=== PATIENT | female | born 1965 | race Caucasian/White ===

== ENCOUNTER 2023-06-12 14:54 | Outpatient (AMB) | payer BC, SELFPAY ==
[2023-06-12 15:05] VITALS: BP 96/80; PULSE 80; O2SAT 98; BMI 24.4
--- NOTE | 2023-06-12 15:05 | A.OFFVIS_ITS ---
Intake Vital Signs 06/12/23 15:05 Height 5 ft 4 in Weight 142 lb BMI 24.4 BP 96/80 Blood Pressure Location Rt brachial Position Sitting Pulse 80 Pulse Source Pulse Oximeter Pulse Oximetry (%) 98 Intake Visit Reasons: ENP-Paresthesia/Small flair neuropathy - LVM Intake Note: Patient presents for flair neuropathy Allergies No Known Allergies Allergy (Verified 06/12/23 15:11) Medication List - Last Reconciled 06/12/23 by ARIS Mustafa cholecalciferol (vitamin D3) 25 mcg PO DAILY levothyroxine 75 mcg PO DAILY magnesium citrate 100 mg PO DAILY mecobalamin (vitamin B12) 1,000 mcg PO DAILY multivitamin with iron 1 tab PO DAILY omega 3-mga-wlz-fish oil 100-160-1,000 mg (Fish Oil) caps PO HPI HPI Comments History of Present Illness Details Left-handed 58-yr-old female presents for neurological evaluation of neuropathy. Patient states she was diagnosed with small fiber neuropathy in 2020, however she is concerned that she has sciatica no in her lower back. Patient was previously seen by Dr. Kennedy before he retired. She is scheduled for a consult with Dr. Monica Vargas at [facility] [place]. Pt reports she in Apr 2020, she noticed an area of loss of sensation in her right inner lower leg. This lasted a few days, which prompted her to start seeking care. Then the numbness progressed over the next few months- to her entire body (including her face). The numbness- feels like she can feel s uperficial touch but deeper sensation is decreased. She then starting having episodes of little muscles and spasms. She then found that she become more prone to feet, legs, arms falling asleep more easily. At that time she underwent: Skin nerve biopsy in the right leg results were consistent with small fiber neuropathy. 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 Pt reports- LP and EMG testing were normal. In May, she had an infection, possibly shingles vs Covid-19- had zinging sensations like a mild rubber band sting- this could occur all over body (except for the face). This had progressed over the year. In May 2021, she also did have a small rash on her right lumbar region a/w mild discomfort. The right lumbar rash/discomfort- resolved pretty quickly Had a lot of stress at that time. She has now been noticing lower lumbar numbness a/w increased BLE numbness not always a/w pain but sometimes discomfort, sensation of muscle buzzing in her legs and sometimes in the abdomen. A year ago, she would have episodes of intermittent right 1st finger tremor. This past week- she had visible muscle fasciculation which she could see through her jeans. In Spring 2022- she was having increased zinging pain in the arms and trunk, some in the lags. She thought maybe it was shingles. She felt this was due to stress. She does not usually have low back pain- only if she sits in an off position. She can have bilateral neck soreness which can move up into the back of the head- and can cause a headache. This started after an accident 5 yrs ago- had lifted something heavier and felt some back strain. It took some time for this to improve- did PT and the PT exercises have helped. She can have T10 region increased numbness a/w increasing torso spasms when pressure is applied to the region- has to wear bra extenders. She can be dizzy at times- can feel lightheaded. She tries to increase her fluid and salt her foods. Prone to sleeping lightly. She has urinary stress incontinence since delivering her 2 children vaginally- this has been worse since 2019, can have leakage r/t being in a warm shower. She denies swelling or skin color changes. She denies usual restlessness. Denies usual cramps. Her mother has automimmune disorders and skin sensitivity- but she does not have numbness. Her maternal grandmother had been dx'd w/ fibromyalgia. [facility] Surgical History (Updated 06/12/23 @ 15:16 by KANU Ulloa) Hx of appendectomy Family History (Updated 06/12/23 @ 15:17 by KANU Ulloa) Mother Breast cancer in female Thyroid disease Social History (Updated 06/12/23 @ 15:17 by KANU Ulloa) Alcohol intake: never Patient Tobacco Use Status: Never used Tobacco Review of Systems Const All systems reviewed & are unremarkable except as noted in HPI and below Physical Exam Vital Signs: Last Vital Signs Pulse 80 06/12/23 15:05 BP 96/80 06/12/23 15:05 Pulse Ox 98 06/12/23 15:05 BMI result Body Mass Index 24.4 Const General: cooperative and no acute distress Orientation/consciousness: patient oriented x3 HEENT Head: Yes normocephalic Resp Effort & Inspection: normal respiratory effort and able to speak in complete sentences Neuro Other: Mild lingual tremor/movement. General: patient oriented x3, CN's II-XI intact bilaterally and deep tendon reflexes 2+ bilaterally Gait exam (Neuro): Normal gait present Motor exam (neuro): 5/5 motor strength present throughout Psych Appearance: grossly normal Mental Status: mental status grossly normal Speech and movement: Normal speech and movement present Affect: normal affect Attitude: cooperative Thought process: Normal thought process present Thought content: Normal thought content present Insight: Good insight present (Psych) Assessment & Plan Assessment & Plan (1) Small fiber neuropathy: Code(s): G62.9 - Polyneuropathy, unspecified (2) Tingling: Code(s): R20.2 - Paresthesia of skin (3) Numbness: Code(s): R20.0 - Anesthesia of skin (4) Muscle spasm: Code(s): M62.838 - Other muscle spasm (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 Thoracic spine MRI with and without contrast L-spine MRI without contrast to assess mid-thoracic numbness, lumbar-sacral region numbness, paresthesias, muscle spasms, back pain, urinary symptoms. Follow-up with [facility] as scheduled. Case discussed with Dr. Alyse Saucedo. Orders: Orders Homocysteine 06/12/23 M62.838 - Other muscle spasm, R20.0 - Anesthesia of skin, R20.2 - Paresthesia of skin, G62.9 - Polyneuropathy, unspecified Methylmalonic Acid 06/12/23 M62.838 - Other muscle spasm, R20.0 - Anesthesia of skin, R20.2 - Paresthesia of skin, G62.9 - Polyneuropathy, unspecified Complete Blood Count Auto Diff 06/12/23 M62.838 - Other muscle spasm, R20.0 - Anesthesia of skin, R20.2 - Paresthesia of skin, G62.9 - Polyneuropathy, unspecified Creatine Kinase Total 06/12/23 M62.838 - Other muscle spasm, R20.0 - Anesthesia of skin, R20.2 - Paresthesia of skin, G62.9 - Polyneuropathy, unspecified Erythrocyte Sedimentation Rate 06/12/23 M62.838 - Other muscle spasm, R20.0 - Anesthesia of skin, R20.2 - Paresthesia of skin, G62.9 - Polyneuropathy, unspecified IRON PROFILE 06/12/23.838 - Other muscle spasm, R20.0 - Anesthesia of skin, R20.2 - Paresthesia of skin, G62.9 - Polyneuropathy, unspecified Folate 06/12/23 M6.838 - Other muscle spasm, R20.0 - Anesthesia of skin, R20.2 - Paresthesia of skin, G62.9 - Polyneuropathy, unspecified MR thoracic spine wo/w con 06/12/23 D49.2 - Neoplasm of unspecified behavior of bone, soft tissue, and skin, M54.50 - Low back pain, unspecified, M54.6 - Pain in thoracic spine, G62.9 - Polyneuropathy, unspecified, R20.2 - Paresthesia of skin, R20.0 - Anesthesia of skin, M62.838 - Other muscle spasm Ferritin 06/12/23 M62.838 - Other muscle spasm, R20.0 - Anesthesia of skin, R20.2 - Paresthesia of skin, G62.9 - Polyneuropathy, unspecified Vitamin B12 and Folate 06/12/23 M6.838 - Other muscle spasm, R20.0 - Anesthesia of skin, R20.2 - Paresthesia of skin, G62.9 - Polyneuropathy, unspecified Comprehensive Met. Panel 06/12/23 M6.838 - Other muscle spasm, R20.0 - Anesthesia of skin, R20.2 - Paresthesia of skin, G62.9 - Polyneuropathy, unspecified CRP High Sensitivity 06/12/23 M62.838 - Other muscle spasm, R20.0 - Anesthesia of skin, R20.2 - Paresthesia of skin, G62.9 - Polyneuropathy, unspecified Hemoglobin A1c 06/12/23 G62.9 - Polyneuropathy, unspecified, R20.2 - Paresthesia of skin, R20.0 - Anesthesia of skin, M62.838 - Other muscle spasm MR lumbar spine wo con 06/12/23 D49.2 - Neoplasm of unspecified behavior of bone, soft tissue, and skin, M54.50 - Low back pain, unspecified, M54.6 - Pain in thoracic spine, G62.9 - Polyneuropathy, unspecified, R20.2 - Paresthesia of skin, R20.0 - Anesthesia of skin, M62.838 - Other muscle spasm Coding Level of Care Code New Pt Level 4 (76088) Diagnoses Small fiber neuropathy G62.9 Tingling R20.2 Numbness R20.0 Muscle spasm M62.838 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
== END 2023-06-12 16:55 | disposition home or self-care (01) ==
PROVIDERS: PCP Family Medicine; Visit Provider Nurse Practitioner Family
DX: G62.9 Polyneuropathy, unspecified (principal); R20.2 Paresthesia of skin; R20.0 Anesthesia of skin; M62.838 Other muscle spasm; D49.2 Neoplasm of unspecified behavior of bone, soft tissue, and skin; M54.50 Low back pain, unspecified; M54.6 Pain in thoracic spine
CPT/HCPCS: 99204

== ENCOUNTER → 2023-06-12 14:54 | Outpatient (BNVA) | payer BC, SELFPAY | PROVIDERS: PCP Family Medicine; Visit Provider Nurse Practitioner Family ==

== ENCOUNTER 2024-01-22 09:39 | Outpatient (AMB) | payer BC, SELFPAY ==
--- NOTE | 2024-01-22 09:39 | A.OFFVIS_ITS ---
Intake Visit Reasons: Follow up Intake Note: Patient following up for MRI results. Allergies No Known Allergies Allergy (Verified 01/22/24 09:40) HPI Comments Details: Left-handed 58-yr-old female presents for f/u of neuropathy. States she had labs done in July- states everything was normal, except the thyroid-. She plans to see a new mri specialist through [facility]. Unfortunately we do not have copy of lab reports. T-spine and L-spine MRI showed minimal thoracic spine degenerative changes. Stable mild lumbar degenerative changes w/ mildto modertae left and mild right foraminal stenosis at L5-S1. Pt reports that she had consult w/ Dr Vargas, who advised her to f/u on managing her thyroid d/o, but also that her condition could be a [id number] process. Had f/u testing showed presecnce but improvement in neuropathy. She feels a quick buzzing/vibrating sensation in her body mostly in the BLE, may feel in the lower trunk. This started about 8-9 months ago. She wonders if this is an early sign of something or is just her nerves being over-activated by the day. This is worse when has has done more physical activity during the day. Usually in bed, evening, but can notice during the day. Certain positions help/worsen. This can prevent her from falling asleep. Denies leg cramps, creepy crawling sensation, urge to move. She does feel BLE leg feel like jelly and her buttocks can fall asleep when sitting. Also feels focal tightening/constriction/pressure deep within- in the arm it feels like a grab. Comes in different spots mostly in her arms and legs. Each episode lasts 30 seconds, then comes and goes in the same location, and then moves to a different location. Does not occur every day. Initial HPI form 06/12/2023: Patient states she was diagnosed with small fiber neuropathy in 2020, however she is concerned that she has sciatica no in her lower back. Patient was previously seen by Dr. Kennedy before he retired. She is scheduled for a consult with Dr. Monica Vargas at [facility] [place]. Pt reports she in Apr 2020, she noticed an area of loss of sensation in her right inner lower leg. This lasted a few days, which prompted her to start seeking care. Then the numbness progressed over the next few months- to her entire body (including her face). The numbness- feels like she can feel superficial touch but deeper sensation is decreased. She then starting having episodes of little muscles and spasms. She then found that she become more prone to feet, legs, arms falling asleep more easily. At that time she underwent: Skin nerve biopsy in the right leg results were consistent with small fiber neuropathy. 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 Pt reports- LP and EMG testing were normal. In May, she had an infection, possibly shingles vs Covid-19- had zinging sensations like a mild rubber band sting- this could occur all over body (except for the face). This had progressed over the year. In May 2021, she also did have a small rash on her right lumbar region a/w mild discomfort. The right lumbar rash/discomfort- resolved pretty quickly Had a lot of stress at that time. She has now been noticing lower lumbar numbness a/w increased BLE numbness not always a/w pain but sometimes discomfort, sensation of muscle buzzing in her legs and sometimes in the abdomen. A year ago, she would have episodes of intermittent right 1st finger tremor. This past week- she had visible muscle fasciculation which she could see through her jeans. In Spring 2022- she was having increased zinging pain in the arms and trunk, some in the lags. She thought maybe it was shingles. She felt this was due to stress. She does not usually have low back pain- only if she sits in an off position. She can have bilateral neck soreness which can move up into the back of the head- and can cause a headache. This started after an accident 5 yrs ago- had lifted something heavier and felt some back strain. It took some time for this to improve- did PT and the PT exercises have helped. She can have T10 region increased numbness a/w increasing torso spasms when pressure is applied to the region- has to wear bra extenders. She can be dizzy at times- can feel lightheaded. She tries to increase her fluid and salt her foods. Prone to sleeping lightly. She has urinary stress incontinence since delivering her 2 children vaginally- this has been worse since 2019, can have leakage r/t being in a warm shower. She denies swelling or skin color changes. She denies usual restlessness. Denies usual cramps. Her mother has automimmune disorders and skin sensitivity- but she does not have numbness. Her maternal grandmother had been dx'd w/ fibromyalgia. PFSH Surgical History Hx of appendectomy Family History Mother Breast cancer in female Thyroid disease Social History Alcohol intake: never Patient Tobacco Use Status: Never used Tobacco Physical Exam Const General: cooperative and no acute distress Orientation/consciousness: patient oriented x3 Resp Effort & Inspection: normal respiratory effort and able to speak in complete sentences Neuro General: patient oriented x3 Cognition (Neuro): normal cognition Psych Appearance: grossly normal Mental Status: mental status grossly normal Speech and movement: Normal speech and movement present Affect: normal affect Attitude: cooperative Telehealth Telehealth Telehealth Platform: [email or web address] Location of provider rendering services: practice address Location of patient: address on file Patient Identification confirmed using: Name, : Yes Telehealth method: video Patient verbally consented to treatment: Yes Patient verbally consented to billing insurance company: Yes Patient informed of any privacy concerns related to visit: Yes Minutes spent on Phone/Video with Pt.: 25 Assessment & Plan Assessment & Plan (1) Small fiber neuropathy: Code(s): G62.9 - Polyneuropathy, unspecified Category: Medical (2) Tingling: Code(s): R20.2 - Paresthesia of skin Category: Medical (3) Numbness: Code(s): R20.0 - Anesthesia of skin Category: Medical (4) Muscle spasm: Code(s): M62.838 - Other muscle spasm Category: Medical (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 Pt will upload copy of her results and [facility] [place] consult report to her portal. Upon review, consider additional work-up for possible etiologies of neuropathy. Follow-up with [facility] as scheduled. Labs reviewed- CBC, CMP, ESR/CRP, CK, ferritin, iron profile, MMA lavel, homocysteine- WNL. 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
== END 2024-01-22 10:48 | disposition home or self-care (01) ==
LOC: HO.HSMS 09:39
PROVIDERS: PCP Family Medicine; Visit Provider Nurse Practitioner Family
DX: G62.9 Polyneuropathy, unspecified (principal); R20.2 Paresthesia of skin; R20.0 Anesthesia of skin; M62.838 Other muscle spasm; D49.2 Neoplasm of unspecified behavior of bone, soft tissue, and skin; M54.50 Low back pain, unspecified; M54.6 Pain in thoracic spine
CPT/HCPCS: 99214

== ENCOUNTER → 2024-01-22 09:39 | Outpatient (BNVA) | payer BC, SELFPAY | PROVIDERS: PCP Family Medicine; Visit Provider Nurse Practitioner Family ==

== ENCOUNTER 2024-07-30 08:50 | Outpatient (AMB) | payer BC, SELFPAY ==
--- NOTE | 2024-07-30 08:48 | MHC.OFFVIS ---
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 In Mar, she lifted a 40lb paper roll (which is awkward to carry/hold) at work, which caused a painful zing f/b a buzzing uncomfortable sensation x's 2 days and self-resolved. She reports the buzzing sensation is occurring less often- now typically. Still prone to episodes of BLE weakness/jelly sensation after sitting for a while. She has had some lower back soreness. Notes her core has always been weak and she is prone to marked muscle soreness after mild exercise. Trying to walk more, 20-30 minutes, after lunch. Trying to use a vibration plate- just started a few minutes a day. Active around her home and yard work. She does not have a scheduled follow-up with [facility]. She also feels that she is always in a high stress state- feels her cortisol levels are always high. May have feel a weird constricting deep bone pain x's 30 seconds, may recur in the same location or move into another location. It is intense pain when it occurs- almost needs to bite her lip. May occur daily, or not have symptoms for a few weeks. She is not sure if this is related to her small fiber neuropathy. She is wondering about red light tx or supplement tx's. 01/22/24 HPI: States she had labs done in July- states everything was normal, except the thyroid-. She plans to see a new prosthetics lab technician through [facility]. Unfortunately we do not have copy of lab reports. T-spine and L-spine MRI showed minimal thoracic spine degenerative changes. Stable mild lumbar degenerative changes w/ mild to moderate left and mild right foraminal stenosis at L5-S1. Pt reports that she had consult w/ Dr Vargas, who advised her to f/u on managing her thyroid d/o, but also that her condition could be a [id number] process. Had f/u testing showed presence but improvement in neuropathy. She feels a quick buzzing/vibrating sensation in her body mostly in the BLE, may feel in the lower trunk. This started about 8-9 months ago. She wonders if this is an early sign of something or is just her nerves being over-activated by the day. This is worse when has has done more physical activity during the day. Usually in bed, evening, but can notice during the day. Certain positions help/worsen. This can prevent her from falling asleep. Denies leg cramps, creepy crawling sensation, urge to move. She does feel BLE leg feel like jelly and her buttocks can fall asleep when sitting. Also feels focal tightening/constriction/pressure deep within- in the arm it feels like a grab. Comes in different spots mostly in her arms and legs. Each episode lasts 30 seconds, then comes and goes in the same location, and then moves to a different location. Does not occur every day. Initial HPI form 06/12/2023: Patient states she was diagnosed with small fiber neuropathy in 2020, however she is concerned that she has sciatica no in her lower back. Patient was previously seen by Dr. Kennedy before he retired. She is scheduled for a consult with Dr. Monica Vargas at [facility]. Pt reports she in Apr 2020, she noticed an area of loss of sensation in her right inner lower leg. This lasted a few days, which prompted her to start seeking care. Then the numbness progressed over the next few months- to her entire body (including her face). The numbness- feels like she can feel superficial touch but deeper sensation is decreased. She then starting having episodes of little muscles and spasms. She then found that she become more prone to feet, legs, arms falling asleep more easily. At that time she underwent: Skin nerve biopsy in the right leg results were consistent with small fiber neuropathy. 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 Pt reports- LP and EMG testing were normal. In May, she had an infection, possibly shingles vs Covid-19- had zinging sensations like a mild rubber band sting- this could occur all over body (except for the face). This had progressed over the year. In May 2021, she also did have a small rash on her right lumbar region a/w mild discomfort. The right lumbar rash/discomfort- resolved pretty quickly Had a lot of stress at that time. She has now been noticing lower lumbar numbness a/w increased BLE numbness not always a/w pain but sometimes discomfort, sensation of muscle buzzing in her legs and sometimes in the abdomen. A year ago, she would have episodes of intermittent right 1st finger tremor. This past week- she had visible muscle fasciculation which she could see through her jeans. In Spring 2022- she was having increased zinging pain in the arms and trunk, some in the lags. She thought maybe it was shingles. She felt this was due to stress. She does not usually have low back pain- only if she sits in an off position. She can have bilateral neck soreness which can move up into the back of the head- and can cause a headache. This started after an accident 5 yrs ago- had lifted something heavier and felt some back strain. It took some time for this to improve- did PT and the PT exercises have helped. She can have T10 region increased numbness a/w increasing torso spasms when pressure is applied to the region- has to wear bra extenders. She can be dizzy at times- can feel lightheaded. She tries to increase her fluid and salt her foods. Prone to sleeping lightly. She has urinary stress incontinence since delivering her 2 children vaginally- this has been worse since 2019, can have leakage r/t being in a warm shower. She denies swelling or skin color changes. She denies usual restlessness. Denies usual cramps. Her mother has automimmune disorders and skin sensitivity- but she does not have numbness. Her maternal grandmother had been dx'd w/ fibromyalgia. [facility] Surgical History Hx of appendectomy Family History Mother Breast cancer in female Thyroid disease Social History Alcohol intake: never Patient Tobacco Use Status: Never used Tobacco Physical Exam Const General: cooperative and no acute distress Orientation/consciousness: patient oriented x3 Resp Effort & Inspection: normal respiratory effort and able to speak in complete sentences Neuro General: patient oriented x3 Cognition (Neuro): normal cognition Psych Appearance: grossly normal Mental Status: mental status grossly normal Speech and movement: Normal speech and movement present Affect: normal affect Attitude: cooperative Telehealth Telehealth Telehealth Platform: [employer] Location of provider rendering services: practice address Location of patient: address on file Patient Identification confirmed using: Name, : Yes Telehealth method: video Patient verbally consented to treatment: Yes Patient verbally consented to billing insurance company: Yes Patient informed of any privacy concerns related to visit: Yes Minutes spent on Phone/Video with Pt.: 33 Assessment & Plan Assessment & Plan (1) Small fiber neuropathy: Code(s): G62.9 - Polyneuropathy, unspecified Category: Medical (2) Tingling: Code(s): R20.2 - Paresthesia of skin Category: Medical (3) Numbness: Code(s): R20.0 - Anesthesia of skin Category: Medical (4) Muscle spasm: Code(s): M62.838 - Other muscle spasm Category: Medical (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 Reviewed [facility] notes by Dr. Roe. Follow-up with [facility] as needed. Check additional labs for underlying or exacerbating etiologies of neuropathy. Upon review of above, Consider a trialing nutritional supplements including vitamin B therapies, vitamin-C, Curcumin, Melatonin coenzyme Q10. Slowly increase paste physical activity, include core strengthening. I was unable to find any literature regarding using red light therapy in the genetic mutation of TRPV4 C 0.557G>A ([id number]). There have been investigations showing prominence in alternate TRPV4 genetic mutation disorders such as CMT. Will follow-up upon review of above and patient to follow-up in clinic in 6 months or sooner prn. Orders: Orders Vitamin B12 and Folate Today G62.9 - Polyneuropathy, unspecified, R20.0 - Anesthesia of skin, R20.2 - Paresthesia of skin Vitamin B2 (Riboflavin) Today G62.9 - Polyneuropathy, unspecified, R20.0 - Anesthesia of skin, R20.2 - Paresthesia of skin Vitamin B6 Today G62.9 - Polyneuropathy, unspecified, R20.0 - Anesthesia of skin, R20.2 - Paresthesia of skin Comprehensive Met. Panel Today G62.9 - Polyneuropathy, unspecified, M62.838 - Other muscle spasm, R20.2 - Paresthesia of skin Magnesium Today M62.838 - Other muscle spasm, R20.2 - Paresthesia of skin C Reactive Protein Today M62.838 - Other muscle spasm, R20.2 - Paresthesia of skin Vitamin B3 (Niacin) Today G62.9 - Polyneuropathy, unspecified, R20.0 - Anesthesia of skin, R20.2 - Paresthesia of skin Vitamin C Today G62.9 - Polyneuropathy, unspecified, R20.0 - Anesthesia of skin, R20.2 - Paresthesia of skin Vitamin B1 Today G62.9 - Polyneuropathy, unspecified, R20.0 - Anesthesia of skin, R20.2 - Paresthesia of skin Complete Blood Count Auto Diff Today G62.9 - Polyneuropathy, unspecified, M62.838 - Other muscle spasm, R20.2 - Paresthesia of skin Erythrocyte Sedimentation Rate Today M62.838 - Other muscle spasm, R20.2 - Paresthesia of skin Coding Level of Care Code Tele Est Pt Level 4 (27425) Diagnoses Small fiber neuropathy G62.9 Tingling R20.2 Numbness R20.0 Muscle spasm M62.838 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
--- OUTSIDE RECORDS SUMMARY | 2024-07-30 09:04 | XMS_ITS | Clinical Summary ---
Author Organization [facility] Address [address] [place] [address] Care Team Providers Care Nail Welter Name Role Phone Unavailable Primary Care Provider Unavailabl e Social History Tobacco Use Types Packs/Day Years Used Date Smoking Tobacco: Never Assessed Comments Unknown Sex and Gender Information Value Date Recorded Sex Assigned at Not on file Legal Sex Female 12:06 AM EST Gender Identity Not on file Sexual Orientation Not on file Plan of Treatment Health Maintenance Due Date Last Done Comments Breast Cancer Screening 1965 DTaP,Tdap,and Td Vaccines (1 - Tdap) 1985 Hepatitis B Vaccines (1 of 3 - 19+ 3-dose series) 1985 Cervical Cancer Screening: P ap Smear 1987 Pneumococcal Vaccine: 50+ Ye ars (1 of 1 - PCV) 2016 Zoster Vaccines (1 of 2) 2016 COVID-19 Vaccine ( - 2023-2 5 season) 2023 Influenza Vaccine (Season Ended) 2024 HIB Vaccines Aged Out No longer eligi ble based on patient's age to complete this topic HPV Vaccines Aged Out No longer eligi ble based on patient's age to complete this topic Hepatitis A Vaccines Aged Out No long er eligible based on patient's age to complete this topic IPV Vaccines Aged Out No longer eligi ble based on patient's age to complete this topic MMR Vaccines Aged Out No longer eligi ble based on patient's age to complete this topic Meningococcal ACWY Vaccine Aged Out N o longer eligible based on patient's age to complete this topic Meningococcal B Vaccine Aged Out No l onger eligible based on patient's age to complete this topic Pneumococcal Vaccine: Pediat rics (0 to 5 Years) and At-Risk Patients (6 to 64 Years) Aged Out No longer eligible b ased on patient's age to complete this topic RSV Immunization Patients Un pia 20 months Aged Out No longer eligible b ased on patient's age to complete this topic Varicella Vaccines Aged Out No longer eligible based on patient's age to complete this topic
== END 2024-07-30 12:34 | disposition home or self-care (01) ==
LOC: HO.HSMS 08:51
PROVIDERS: PCP Family Medicine; Visit Provider Nurse Practitioner Family
DX: G62.9 Polyneuropathy, unspecified (principal); R20.2 Paresthesia of skin; R20.0 Anesthesia of skin; M62.838 Other muscle spasm; D49.2 Neoplasm of unspecified behavior of bone, soft tissue, and skin; M54.50 Low back pain, unspecified; M54.6 Pain in thoracic spine
CPT/HCPCS: 99214

== ENCOUNTER → 2024-07-30 08:50 | Outpatient (BNVA) | payer BC, SELFPAY | PROVIDERS: PCP Family Medicine; Visit Provider Nurse Practitioner Family ==